=== PATIENT | female | born 1970 | race Caucasian/White ===

== ENCOUNTER → 2019-08-27 | Outpatient (CLI) | payer MEDICAID ==
--- NOTE | 2019-08-27 10:13 | RADIOLOGY REPORT (SQ) ---
EXAM DESCRIPTION: CT ABD/PELVIS WITH IV ORAL COMPLETED DATE/TIME: 08/27/2019 9:45 am REASON FOR STUDY: ABDOMINAL PAIN R10.9 UNSPECIFIED ABDOMINAL PAIN COMPARISON: None. TECHNIQUE: CT scan of the abdomen and pelvis performed using helical scanning technique with dynamic intravenous contrast injection. No oral contrast. Images reviewed with lung, soft tissue, and bone windows. Reconstructed coronal and sagittal MPR images reviewed. Delayed images for evaluation of the urinary system also acquired. All images stored on PACS. All CT scanners at this facility use dose modulation, iterative reconstruction, and/or weight based d osing when appropriate to reduce radiation dose to as low as reasonably achievable (ALARA). [facility]: Dose Right [facility]: CareDose [facility]: Dose Right [facility]: Teradose 4D [facility]: dMetrics CONTRAST TYPE AND DOSE: contrast/concentration: Isovue 350.00 mg/ml; Total Contrast Delivered: 83.0 ml; Total Saline Delivered: 65.0 ml RENAL FUNCTION: None required. The patient is less than 50 years old. RADIATION DOSE: CT Rad equipment meets quality standard of care and radiation dose reduction techniq ues were employed. CTDIvol: 8.3 - 11.5 mGy. DLP: 1547 mGy-cm.. LIMITATIONS: None. FINDINGS: LOWER CHEST: Minimal lingular atelectasis or scarring. LIVER: Normal size. No masses. No dilated ducts. SPLEEN: Normal size. No focal lesions. PANCREAS: No masses. No significant calcifications. No adjacent inflammation or peripancreatic fluid collections. Pancreatic duct not dilated. GALLBLADDER: No identified stones by CT criteria. No inflammatory changes to suggest cholecystitis. ADRENAL GLANDS: No significant masses or asymmetry. RIGHT KIDNEY AND URETER: No solid masses. No significant calcifications. No hydronephrosis or hyd roureter. LEFT KIDNEY AND URETER: 7 mm benign fatty nodule left mid pole kidney likely a small angio myelolipom a. No significant calcifications. No hydronephrosis or hydroureter. AORTA AND VESSELS: No aneurysm. No dissection. Renal arteries, SMA, celiac without stenosis. RETROPERITONEUM: No retroperitoneal adenopathy, hemorrhage or masses. BOWEL AND PERITONEAL CAVITY: No masses or inflammatory changes. No free fluid or peritoneal masses. APPENDIX: Normal. PELVIS: No mass. No free fluid. Normal bladder. Post hysterectomy. Ovaries not visualized. ABDOMINAL WALL: No masses. No hernias. BONES: No significant or acute findings. OTHER: No other significant finding. IMPRESSION: NO SIGNIFICANT OR ACUTE FINDING IN THE ABDOMEN OR PELVIS ON CT SCAN WITH IV CONTRAST. TECHNICAL DOCUMENTATION: JOB ID: [id number] Quality ID # [id number]: Final reports with documentation of one or more dose reduction techniques (e.g., Au tomated exposure control, adjustment of the mA and/or kV according to patient size, use of iterative reconstruction technique) 2010 [employer]- All Rights Reserved Reading location - IP/workstation name: [email or web address]
== END ==
LOC: RAD 09:12
PROVIDERS: ATTEND Surgery
DX: R10.9 Unspecified abdominal pain (principal)
CPT/HCPCS: 74177

== ENCOUNTER → 2020-02-10 | Outpatient (CLI) | payer MEDICAID ==
--- NOTE | 2020-02-10 16:49 | RADIOLOGY REPORT (SQ) ---
EXAM DESCRIPTION: CHEST PA/LATERAL COMPLETED DATE/TIME: 02/10/2020 4:40 pm REASON FOR STUDY: LEFT ELBOW PAIN; DIFFICULTY BREATHING COMPARISON: 11/14/2018 EXAM PARAMETERS: NUMBER OF VIEWS: two views TECHNIQUE: Digital Frontal and Lateral radiographic views of the chest acquired. RADIATION DOSE: NA LIMITATIONS: none FINDINGS: LUNGS AND PLEURA: No opacities, masses or pneumothorax. No pleural effusion. MEDIASTINUM AND HILAR STRUCTURES: No masses or contour abnormalities. HEART AND VASCULAR STRUCTURES: Heart normal size. No evidence for failure. BONES: No acute findings. HARDWARE: None in the chest. OTHER: No other significant finding. IMPRESSION: NO SIGNIFICANT RADIOGRAPHIC FINDING IN THE CHEST. TECHNICAL DOCUMENTATION: JOB ID: [id number] 2010 [employer]- All Rights Reserved Reading location - IP/workstation name: [email or web address]
--- NOTE | 2020-02-10 16:50 | RADIOLOGY REPORT (SQ) ---
EXAM DESCRIPTION: ELBOW LEFT >2 VIEWS COMPLETED DATE/TIME: 02/10/2020 4:40 pm REASON FOR STUDY: LEFT ELBOW PAIN; DIFFICULTY BREATHING R42 DIZZINESS AND GIDDINESS R53.83 OTHER F ATIGUE R63.5 ABNORMAL WEIGHT GAIN COMPARISON: None. NUMBER OF VIEWS: Four views. TECHNIQUE: AP, lateral, and both oblique radiographic images acquired of the left elbow. LIMITATIONS: None. FINDINGS: MINERALIZATION: Normal. BONES: No acute fracture or dislocation. No worrisome bone lesions. Small area of sclerosis in the radial head is consistent with bone island. JOINT: No effusion. SOFT TISSUES: No soft tissue swelling. No foreign body. OTHER: No other significant finding. IMPRESSION: NEGATIVE STUDY OF THE LEFT ELBOW. NO RADIOGRAPHIC EVIDENCE OF ACUTE INJURY. TECHNICAL DOCUMENTATION: JOB ID: [id number] 2010 [employer]- All Rights Reserved Reading location - IP/workstation name: [email or web address]
--- NOTE | 2020-02-10 16:51 | RADIOLOGY REPORT (SQ) ---
EXAM DESCRIPTION: SOFT TISSUE NECK COMPLETED DATE/TIME: 02/10/2020 4:40 pm REASON FOR STUDY: LEFT ELBOW PAIN; DIFFICULTY BREATHING R42 DIZZINESS AND GIDDINESS R53.83 OTHER F ATIGUE R63.5 ABNORMAL WEIGHT GAIN COMPARISON: 06/15/2016 NUMBER OF VIEWS: Two views. TECHNIQUE: AP and lateral radiographic image of the soft tissues of the neck. LIMITATIONS: None. FINDINGS: EPIGLOTTIS: Normal. Contour normal. Aryepiglottic folds normal. PREVERTEBRAL SOFT TISSUES: Normal. No soft tissue swelling. SUBGLOTTIC AREA: Normal. No narrowing. RETROPHARYNGEAL SPACE: Normal. No soft tissue masses. BONES: No significant findings. LUNG APICES: Normal. OTHER: No radiopaque foreign body. No other significant finding. IMPRESSION: NEGATIVE STUDY OF THE SOFT TISSUES OF THE NECK. TECHNICAL DOCUMENTATION: JOB ID: [id number] 2010 [employer]- All Rights Reserved Reading location - IP/workstation name: [email or web address]
[2020-02-10 17:38] LABS: ALBUMIN 4.6 g/dL (3.5-5.0); ALKALINE PHOSPHATASE 56 U/L (38-126); ANION GAP 10 (5-19); ASPARTATE AMINO TRANSFERASE 30 U/L (14-36); BILIRUBIN,TOTAL 0.6 mg/dL (0.2-1.3); BLOOD UREA NITROGEN 13 mg/dL (7-20); CALCIUM 9.4 mg/dL (8.4-10.2); CARBON DIOXIDE 23 mmol/L (22-30); CHLORIDE 104 mmol/L (98-107); GLUCOSE 90 mg/dL (75-110); POTASSIUM 4.3 mmol/L (3.6-5.0); TOTAL PROTEIN 7.1 g/dL (6.3-8.2)
[2020-02-10 17:42] LABS: ABSOLUTE BASOPHILS # (AUTO) 0.1 10^3/uL (0.0-0.2); ABSOLUTE EOSINOPHILS # (AUTO) 0.8 10^3/uL (0.0-0.6); ABSOLUTE LYMPHOCYTES (AUTO) 2.1 10^3/uL (0.5-4.7); ABSOLUTE MONOCYTES (AUTO) 0.5 10^3/uL (0.1-1.4); ABSOLUTE NEUT (AUTO) 3.5 10^3/uL (1.7-8.2); BASOPHILS % (AUTO) 2.1 % (0-2); EOSINOPHILS % (AUTO) 11.9 % (0-6); HEMATOCRIT 39.6 % (36.0-47.0); HEMOGLOBIN 13.8 g/dL (12.0-15.5); LYMPHOCYTES % (AUTO) 29.5 % (13-45); MEAN CORPUSCULAR HEMOGLOBIN 30.4 pg (27.0-33.4); MEAN CORPUSCULAR VOLUME 87 fl (80-97); MONOCYTES % (AUTO) 6.7 % (3-13); PLATELET COUNT 191 10^3/uL (150-450); RED BLOOD COUNT 4.56 10^6/uL (3.72-5.28); RED CELL DISTRIBUTION WIDTH 13.8 % (11.5-14.0); SEGMENTED NEUTROPHILS % (AUTO) 49.8 % (42-78); TOTAL CELLS COUNTED % (AUTO) 100 %
== END ==
LOC: OD 16:12
PROVIDERS: ATTEND Nurse Practitioner Family
DX: R42 Dizziness and giddiness (principal); R53.83 Other fatigue; R63.5 Abnormal weight gain; M25.522 Pain in left elbow; R06.89 Other abnormalities of breathing
CPT/HCPCS: 36415; 70360; 71046; 80053; 84443; 85025

== ENCOUNTER 2020-05-31 21:07 | Emergency (ER) | payer MEDICAID ==
--- NOTE | 2020-05-31 23:30 | RADIOLOGY REPORT (SQ) ---
CLINICAL INDICATION: eval for fx or retained FB. Pain post trauma. TECHNIQUE: 3 view(s) were obtained of the left foot. COMPARISON: None. FINDINGS: No acute displaced fracture is identified of the foot. Alignment appears anatomic. Joint spaces are within normal limits for age. Soft tissue swelling. No retained radiopaque foreign body. IMPRESSION: No evidence of acute displaced fracture of the foot.
--- NOTE | 2020-06-01 00:24 | ER Document Report ---
ED Extremity Problem, Lower - General Chief Complaint: Laceration Stated Complaint: LEFT FOOT PAIN Time Seen by Provider: 05/31/20 22:37 Primary Care Provider: JODIE COLLINS NP [Primary Care Provider] - Follow up as needed Mode of Arrival: Ambulatory Information source: Patient Notes: 49-year-old female presented to ED for complaint of laceration to the left foot caused by oyster shells. She stated that she had cleaned the foot before coming to the emergency room. She states her pain was a 4-5. Told her tetanus was up-to-date as she had had it in 2004 and she did not need it again at this time. She was alert oriented respirations regular nonlabored speaking in full sentences. TRAVEL OUTSIDE OF THE [place] IN LAST 30 DAYS: No - HPI Patient complains to provider of: Injury, Pain Location: Foot - Left foot caused by oyster shells. Occurred: Other - 05/31/2020 Where: Outdoors, Public place Onset/Duration: Sudden Quality of pain: Sharp, Throbbing Severity: Moderate Pain Level: 4 Context: Laceration Recent injury: Yes - Caused by was to chills Associated symptoms: Painful ambulation Exacerbated by: Movement, Walking Relieved by: Elevation - Related Data Allergies/Adverse Reactions: gluten [Gluten] Allergy (Intermediate, Verified 05/31/20 22:37) abd bloating and swelling latex [Latex] Adverse Reaction (Severe, Verified 05/31/20 22:37) skin peels off soy [Soy] Adverse Reaction (Severe, Verified 05/31/20 22:37) irritable stomach Home Medications: ALBUTEROL. ADVAIR Past Medical History - General Information source: Patient - Social History Smoking Status: Never Smoker Frequency of alcohol use: None Drug Abuse: None Lives with: Family Family History: Reviewed & Not Pertinent Patient has homicidal ideation: No - Past Medical History Cardiac Medical History: Reports: None Pulmonary Medical History: Reports: Hx Asthma, Hx Bronchitis, Hx Pneumonia EENT Medical History: Reports: None Neurological Medical History: Reports: Other - Meningioma Endocrine Medical History: Reports: None Renal/ Medical History: Reports: Hx Ovarian Cysts, Other - Fibrocystic uterus, endometriosis, Malignancy Medical History: Reports: Hx Cervical Cancer GI Medical History: Reports: Other - 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 Musculoskeletal Medical History: Reports None Skin Medical History: Reports None Traumatic Medical History: Reports: None Infectious Medical History: Reports: None Past Surgical History: Reports: Hx Breast Surgery, Hx Gynecologic Surgery - Laparoscopic surgeries for endometriosis, Hx Hysterectomy, Hx Tubal Ligation - Immunizations Hx Diphtheria, Pertussis, Tetanus Vaccination: Yes - He stated her tetanus was in 2011 did not want 1 today Review of Systems - Review of Systems Constitutional: No symptoms reported EENT: No symptoms reported Cardiovascular: No symptoms reported Respiratory: No symptoms reported Gastrointestinal: No symptoms reported Genitourinary: No symptoms reported Female Genitourinary: No symptoms reported Musculoskeletal: No symptoms reported Skin: Other - For lacerations from oyster shells. Hematologic/Lymphatic: No symptoms reported Neurological/Psychological: No symptoms reported -: Yes All other systems reviewed and negative Physical Exam - Vital signs Vitals: Temp Pulse Resp BP Pulse Ox 97.9 F 91 18 117/78 96 05/31/20 21:36 05/31/20 21:36 05/31/20 21:36 05/31/20 21:36 05/31/20 21:36 Interpretation: Normal - General General appearance: Appears well, Alert - HEENT Head: Normocephalic, Atraumatic Eyes: Normal Pupils: PERRL - Respiratory Respiratory status: No respiratory distress Chest status: Nontender Breath sounds: Normal Chest palpation: Normal - Cardiovascular Rhythm: Regular Heart sounds: Normal auscultation Murmur: No - Abdominal Inspection: Normal Distension: No distension Bowel sounds: Normal Tenderness: Nontender Organomegaly: No organomegaly - Back Back: Normal, Nontender - Extremities General upper extremity: Normal inspection, Nontender, Normal color, Normal ROM, Normal temperature General lower extremity: Normal inspection, Nontender, Normal color, Normal ROM, Normal temperature, Normal weight bearing. No: Emile's sign - Neurological Neuro grossly intact: Yes Cognition: Normal Orientation: AAOx4 [place] Coma Scale Eye Opening: Spontaneous Isaac Coma Scale Verbal: Oriented [place] Coma Scale Motor: Obeys Commands Isaac Coma Scale Total: 15 Speech: Normal Motor strength normal: LUE, RUE, LLE, RLE Sensory: Normal - Psychological Associated symptoms: Normal affect, Normal mood - Skin Skin Temperature: Warm Skin Moisture: Dry Skin Color: Normal Skin irregularity: Laceration - Regular lacerations due to oyster shells to left foot stepped area very irregular 2 cm Location of irregularity: Other - Left foot Course - Re-evaluation Re-evalutation: 06/01/20 10:15 No foreign body noted in laceration. Patient's foot was soaked in surgical scrub and warm water for 15 minutes then there was irrigated with saline bacitracin Telfa pad applied and then wrapped with [place]. She was given instructions for cleaning foot and soaking wound Epson salt 3 times a day. She was also prescribed doxycycline liquid as she states she cannot swallow pills. She was instructed to use Tylenol for her pain. Patient verbalized understanding and agreement with treatment plan and patient was discharged home. - Vital Signs Vital signs: Temp Pulse Resp BP Pulse Ox 97.7 F 73 15 126/85 H 97 06/01/20 00:51 06/01/20 00:51 06/01/20 00:51 06/01/20 00:51 06/01/20 00:51 - Diagnostic Test Radiology reviewed: Image reviewed, Reports reviewed Procedures - Immobilization Left Foot Time completed: 00:40 Immobilizer type: Crutches Performed by: RN Post-Proc Neuro Vasc Exam: Normal Alignment checked and good: Yes Discharge - Discharge Clinical Impression: Left foot laceration from oyster shells Condition: Stable Disposition: HOME, SELF-CARE Additional Instructions: NON-SUTURED LACERATION: Your laceration did not require suturing. Some lacerations cannot be sutu red because of increased infection risk, while others simply don't need stitches because they are shallow or very short. Your injury should be protected while it heals. Usually complete healing takes 10 to 14 days. Keep the dressing clean and dry, and change it every day. If you notice increasing pain, redness, swelling, drainage, or tender lumps in the armpit or groin above the injury, infection may be present. You should call the doctor at once. Epsom Salt Soaks Soak the wound area in a container of warm epsom salt water. If you can't get the wound area into a bucket or kong, use a folded towel soaked in the epsom salt solution and apply to the area. Use clean hot tap water (about the temperature of a very warm bath), mixing in about one (1) teaspoon for every pint of water. Two gallon --> 16 teaspoons Epsom Salts One gallon --> 8 teaspoons Epsom Salts Two quarts --> 4 teaspoons Epsom Salts One quart --> 2 teaspoons Epsom Salts Soak the wound for about 20 minutes while gently moving it around in the water. Repeat this four (4) times a day. SOAP CLEANSING: Gently wash the wound daily using a mild soap (like Ivory, Phisoderm, Neutrogena). Use warm water, rubbing gently until all debris, ooze, and crusting have been washed from the wound. Allow to dry briefly (about 10 m inutes) after cleaning. Repeat this cleansing at least three times a day for the first two days and then once or twice a day. ANTIBIOTIC OINTMENT PROTECTION: Your wounds are such that dressing them is not practical or optional. After cleansing, you should apply a thin coating of antibiotic ointment (Bacitracin, not Neosporin) to the wounds at least three times daily. This lessens infection risk, and may decrease the amount of scarring. Use a q-tip or dull butter knife, not your finger, to apply this ointment. Any debris or ooze which builds up in the ointment should be gently rubbed off with a sterile gauze pad. Harder crusting may need to be gently scrubbed off with a clean wash cloth with soap and warm water, perhaps applying a warm, wet wash cloth to the wound for ten minutes first. Development of redness, severe itching, or blistering may mean allergy to the ointment. See the doctor. FOLLOW-UP CARE: Please return for follow-up with your primary care doctor in _3____ days for an infection check . If you have been referred to another physician for follow-up care, call that physicians office for an appointment as you were instructed. If you e xperience a significant change in your laceration, or if you are concerned there may be an infection (swelling, redness, drainage, increasing tenderness, red streaks, tender lumps in the armpit or groin above the laceration, or fever), return to the Emergency Department immediately re-evaluation. Prescriptions: Doxycycline Monohydrate [Vibramycin 5 mg/ml Susp] 100 mg PO BID 10 Days #1 bottle Referrals: JODIE COLLINS NP [Primary Care Provider] - Follow up as needed
--- NOTE | 2020-06-01 00:32 | ER Document Report ---
ED Medical Screen (RME) - General Stated Complaint: LEFT FOOT PAIN Time Seen by Provider: 05/31/20 22:37 Primary Care Provider: JODIE COLLINS NP [Primary Care Provider] - Follow up as needed Mode of Arrival: Ambulatory Information source: Patient Notes: 49-year-old female patient presented emergency department concern for laceration to her left foot. Patient reports she stepped on a seashell. She now has diffuse pain and swelling to the entire left foot. I have greeted and performed a rapid initial assessment of this patient. A comprehensive ED assessment and evaluation of the patient, analysis of test results and completion of the medical decision making process will be conducted by additional ED providers. I have specifically instructed the patient or family members with the patient to immediately return to any nursing staff should anything change in the patient's condition or with their chief complaint. TRAVEL OUTSIDE OF THE [place] IN LAST 30 DAYS: No - Related Data Allergies/Adverse Reactions: gluten [Gluten] Allergy (Intermediate, Verified 05/31/20 22:37) abd bloating and swelling latex [Latex] Adverse Reaction (Severe, Verified 05/31/20 22:37) skin peels off soy [Soy] Adverse Reaction (Severe, Verified 05/31/20 22:37) irritable stomach Past Medical History - Past Medical History Cardiac Medical History: Denies: Hx Coronary Artery Disease, Hx Heart Attack, Hx Hypertension Pulmonary Medical History: Reports: Hx Asthma, Hx Bronchitis, Hx Pneumonia Denies: Hx COPD Neurological Medical History: Denies: Hx Cerebrovascular Accident, Hx Seizures Musculoskeltal Medical History: Denies Hx Arthritis Psychiatric Medical History: Denies: Hx Depression Past Surgical History: Reports: Hx Breast Surgery, Hx Hysterectomy, Hx Tubal Ligation - Immunizations Hx Diphtheria, Pertussis, Tetanus Vaccination: No Physical Exam - Vital signs Vitals: Temp Pulse Resp BP Pulse Ox 97.9 F 91 18 117/78 96 05/31/20 21:36 05/31/20 21:36 05/31/20 21:36 05/31/20 21:36 05/31/20 21:36 Course - Vital Signs Vital signs: Temp Pulse Resp BP Pulse Ox 97.7 F 73 15 126/85 H 97 06/01/20 00:51 06/01/20 00:51 06/01/20 00:51 06/01/20 00:51 06/01/20 00:51 Doctor's Discharge - Discharge Clinical Impression: Left foot laceration from oyster shells Condition: Stable Disposition: HOME, SELF-CARE Additional Instructions: NON-SUTURED LACERATION: Your laceration did not require suturing. Some lacerations cannot be sutured because of increased infection risk, while others simply don't need stitches because they are shallow or very short. Your injury should be protected while it heals. Usually complete healing takes 10 to 14 days. Keep the dressing clean and dry, and change it every day. If you notice increasing pain, redness, swelling, drainage, or tender lumps in the armpit or groin above the injury, infection may be present. You should call the doctor at once. Epsom Salt Soaks Soak the wound area in a container of warm epsom salt water. If you can't get the wound area into a bucket or kong, use a folded towel soaked in the epsom salt solution and apply to the area. Use clean hot tap water (about the temperature of a very warm bath), mixing in about one (1) teaspoon for every pint of water. Two gallon --> 16 teaspoons Epsom Salts One gallon --> 8 teaspoons Epsom Salts Two quarts --> 4 teaspoons Epsom Salts One quart --> 2 teaspoons Epsom Salts Soak the wound for about 20 minutes while gently moving it around in the water. Repeat this four (4) times a day. SOAP CLEANSING: Gently wash the wound daily using a mild soap (like Ivory, Phisoderm, Neutrogena). Use warm water, rubbing gently until all debris, ooze, and crusting have been washed from the wound. Allow to dry briefly (about 10 minutes) after cleaning. Repeat this cleansing at least three times a day for the first two days and then once or twice a day. ANTIBIOTIC OINTMENT PROTECTION: Your wounds are such that dressing them is not practical or optional. After cleansing, you should apply a thin coating of antibiotic ointment (Bacitracin, not Neosporin) to the wounds at least three times daily. This lessens infection risk, and may decrease the amount of scarring. Use a q-tip or dull butter knife, not your finger, to apply this ointment. Any debris or ooze which builds up in the ointment should be gently rubbed off with a sterile gauze pad. Harder crusting may need to be gently scrubbed off with a clean wash cloth with soap and warm water, perhaps applying a warm, wet wash cloth to the wound for ten minutes first. Development of redness, severe itching, or blistering may mean allergy to the ointment. See the doctor. FOLLOW-UP CARE: Please return for follow-up with your primary care doctor in _3____ days for an infection check . If you have been referred to another physician for follow-up care, call that physicians office for an appointment as you were instructed. If you experience a significant change in your laceration, or if you are concerned there may be an infection (swelling, redness, drainage, increasing tenderness, red streaks, tender lumps in the armpit or groin above the laceration, or fever), return to the Emergency Department immediately re-evaluation. Prescriptions: Doxycycline Monohydrate [Vibramycin 5 mg/ml Susp] 100 mg PO BID 10 Days #1 bottle Referrals: JODIE COLLINS NP [Primary Care Provider] - Follow up as needed
[2020-06-01 00:52] VITALS: BP 126/85
== END 2020-06-01 01:06 | disposition home or self-care (01) ==
LOC: ER 21:07
DX: S91.312A Laceration without foreign body, left foot, initial encounter (principal); W26.8XXA Contact with other sharp object(s), not elsewhere classified, initial encounter; Z91.040 Latex allergy status; Z91.018 Allergy to other foods
CPT/HCPCS: 99283

== ENCOUNTER 2020-11-27 18:44 | Emergency (ER) | payer MEDICAID ==
[2020-11-27] MEDS ORDERED: METHYLPREDNISOLONE INJ 125 MG/2 ML SDV IV ONE (18:57)
[2020-11-27] MEDS ORDERED: CYCLOBENZAPRINE HCL 10 MG TABLET PO ONE (18:58)
[2020-11-27] MEDS ORDERED: IPRATROPIUM/ALBUTEROL 0.5-2.5 MG/3 ML AMPUL NEB ONE (18:58)
--- NOTE | 2020-11-27 18:59 | ER Document Report ---
ED Medical Screen (RME) - General Chief Complaint: Shoulder Pain Stated Complaint: RIGHT SHOULDER/ARM PAIN Time Seen by Provider: 11/27/20 18:48 Primary Care Provider: JODIE COLLINS NP [Primary Care Provider] - Follow up as needed Mode of Arrival: Ambulatory Information source: Patient Notes: HPI; 50-year-old female past medical history significant for reactive airway disease presents to the emergency room complaining of right shoulder pain that started last night while she was sleeping. Pain is gotten progressively worse throughout the day. She denies any trauma or injury. Also states it hurts to take a deep breath but she denies chest pain or shortness of breath. Has been using her inhalers without relief. States she is out of medication for her nebu lizer. She denies any fevers. She denies any COVID-19 exposure. States she took 600 mg of ibuprofen around 3 PM without relief. PE: Alert and oriented x3. Lungs with wheezing and rhonchi no rales. Heart: Regular rate rhythm without murmurs, rubs, gallops. Tenderness over the right trapezius muscle as well as the right posterior and anterior shoulder painful range of motion to right shoulder. Bpm Analyst strength equal and adequate bilaterally. Positive right radial pulse. I have greeted and performed a rapid initial assessment of this patient. A comprehensive ED assessment and evaluation of the patient, analysis of test results and completion of the medical decision making process will be conducted by additional ED providers. I have specifically instructed the patient or family members with the patient to immediately return to any nursing staff should anything change in the patient's condition or with their chief complaint. TRAVEL OUTSIDE OF THE [place] IN LAST 30 DAYS: No - Related Data Allergies/Adverse Reactions: gluten [Gluten] Allergy (Intermediate, Verified 05/31/20 22:37) abd bloating and swelling latex [Latex] Adverse Reaction (Severe, Verified 05/31/20 22:37) skin peels off soy [Soy] Adverse Reaction (Severe, Verified 05/31/20 22:37) irritable stomach Past Medical History - Past Medical History Cardiac Medical History: Denies: Hx Coronary Artery Disease, Hx Heart Attack, Hx Hypertension Pulmonary Medical History: Reports: Hx Asthma, Hx Bronchitis, Hx Pneumonia Denies: Hx COPD Neurological Medical History: Denies: Hx Cerebrovascular Accident, Hx Seizures Renal/ Medical History: Reports: Hx Ovarian Cysts Malignancy Medical History: Reports: Hx Cervical Cancer Musculoskeltal Medical History: Denies Hx Arthritis Psychiatric Medical History: Denies: Hx Depression Past Surgical History: Reports: Hx Breast Surgery, Hx Gynecologic Surgery - Lap aroscopic surgeries for endometriosis, Hx Hysterectomy, Hx Tubal Ligation - Immunizations Hx Diphtheria, Pertussis, Tetanus Vaccination: Yes - He stated her tetanus was in 2011 did not want 1 today Physical Exam - Vital signs Vitals: Temp Pulse Resp BP Pulse Ox 97.6 F 77 20 132/80 H 96 11/27/20 18:48 11/27/20 18:48 11/27/20 18:48 11/27/20 18:48 11/27/20 18:48 Course - Vital Signs Vital signs: Temp Pulse Resp BP Pulse Ox 97.6 F 77 20 132/80 H 96 11/27/20 18:48 11/27/20 18:48 11/27/20 18:48 11/27/20 18:48 11/27/20 18:48 Doctor's Discharge - Discharge Referrals: JODIE COLLINS NP [Primary Care Provider] - Follow up as needed
--- NOTE | 2020-11-27 19:34 | RADIOLOGY REPORT (SQ) ---
EXAM DESCRIPTION: SHOULDER RIGHT 2 OR MORE VIEWS IMAGES COMPLETED DATE/TIME: 11/27/2020 7:17 pm REASON FOR STUDY: pain COMPARISON: None. NUMBER OF VIEWS: Three views. TECHNIQUE: Internal rotation, external rotation, and Y view images acquired of the right shoulder. LIMITATIONS: None. FINDINGS: MINERALIZATION: Normal. BONES: No acute fracture. No worrisome bone lesions. JOINTS: No dislocation. VISUALIZED LUNGS AND RIBS: No pneumothorax. No rib fracture. SOFT TISSUES: No radiopaque foreign body. Incidental note is made of calcific tendinopathy of the ro tator cuff. OTHER: No other significant finding. IMPRESSION: No evidence of acute osseous injury. Incidental note is made of rotator cuff calcific t endinopathy. TECHNICAL DOCUMENTATION: JOB ID: [id number] 2010 [employer]- All Rights Reserved Reading location - IP/workstation name: [email or web address]
--- NOTE | 2020-11-27 19:35 | RADIOLOGY REPORT (SQ) ---
EXAM DESCRIPTION: CHEST 2 VIEWS IMAGES COMPLETED DATE/TIME: 11/27/2020 7:17 pm REASON FOR STUDY: dyspnea COMPARISON: 02/10/2020 EXAM PARAMETERS: NUMBER OF VIEWS: two views TECHNIQUE: Digital Frontal and Lateral radiographic views of the chest acquired. RADIATION DOSE: NA LIMITATIONS: none FINDINGS: LUNGS AND PLEURA: No opacities, masses or pneumothorax. No pleural effusion. MEDIASTINUM AND HILAR STRUCTURES: No masses or contour abnormalities. HEART AND VASCULAR STRUCTURES: Heart normal size. No evidence for failure. BONES: No acute findings. HARDWARE: None in the chest. OTHER: No other significant finding. IMPRESSION: No evidence of acute cardiopulmonary abnormality. TECHNICAL DOCUMENTATION: JOB ID: [id number] 2010 [employer]- All Rights Reserved Reading location - IP/workstation name: [email or web address]
[2020-11-27 20:04] LABS: ABSOLUTE BASOPHILS # (AUTO) 0.1 10^3/uL (0.0-0.2); ABSOLUTE EOSINOPHILS # (AUTO) 0.8 10^3/uL (0.0-0.6); ABSOLUTE LYMPHOCYTES (AUTO) 2.8 10^3/uL (0.5-4.7); ABSOLUTE MONOCYTES (AUTO) 0.7 10^3/uL (0.1-1.4); ABSOLUTE NEUT (AUTO) 7.6 10^3/uL (1.7-8.2); BASOPHILS % (AUTO) 0.8 % (0-2); EOSINOPHILS % (AUTO) 6.9 % (0-6); HEMATOCRIT 42.1 % (36.0-47.0); HEMOGLOBIN 14.3 g/dL (12.0-15.5); LYMPHOCYTES % (AUTO) 23.1 % (13-45); MEAN CORPUSCULAR HEMOGLOBIN 29.5 pg (27.0-33.4); MEAN CORPUSCULAR HGB CONC 33.8 g/dL (32.0-36.0); MEAN CORPUSCULAR VOLUME 87 fl (80-97); MONOCYTES % (AUTO) 5.7 % (3-13); PLATELET COUNT 271 10^3/uL (150-450); RED BLOOD COUNT 4.83 10^6/uL (3.72-5.28); RED CELL DISTRIBUTION WIDTH 13.7 % (11.5-14.0); SEGMENTED NEUTROPHILS % (AUTO) 63.5 % (42-78); TOTAL CELLS COUNTED % (AUTO) 100 %
[2020-11-27 20:18] LABS: ALBUMIN 4.9 g/dL (3.5-5.0); ALKALINE PHOSPHATASE 79 U/L (38-126); ANION GAP 8 (5-19); ASPARTATE AMINO TRANSFERASE 44 U/L (14-36); BILIRUBIN,DIRECT 0.1 mg/dL (0.0-0.4); BILIRUBIN,TOTAL 0.4 mg/dL (0.2-1.3); BLOOD UREA NITROGEN 25 mg/dL (7-20); CALCIUM 10.1 mg/dL (8.4-10.2); CARBON DIOXIDE 28 mmol/L (22-30); CHLORIDE 100 mmol/L (98-107); GLUCOSE 94 mg/dL (75-110); TOTAL PROTEIN 7.8 g/dL (6.3-8.2)
[2020-11-27] MEDS ORDERED: METHYLPREDNISOLONE INJ 125 MG/2 ML SDV ONE (22:06)
[2020-11-28] MEDS ORDERED: HYDROCODONE/ACETAMINOPHEN 5-325 MG TABLET PO ONE (00:06)
[2020-11-28] MEDS ORDERED: HYDROCODONE/ACETAMINOPHEN 5-325 MG (6 TAB/ER DISP) PO PRN (00:06)
[2020-11-28] MEDS ORDERED: PREDNISONE 20 MG TABLET PO ONE (00:07)
--- NOTE | 2020-11-28 00:14 | ER Document Report ---
ED General - General Chief Complaint: Shoulder Pain Stated Complaint: RIGHT SHOULDER/ARM PAIN Time Seen by Provider: 11/27/20 18:48 Primary Care Provider: JODIE COLLINS NP [Primary Care Provider] - Follow up as needed Mode of Arrival: Ambulatory TRAVEL OUTSIDE OF THE [place] IN LAST 30 DAYS: No - HPI Context: Chief Complaint: [Right shoulder pain, pain in hands, out of medications] [This is a 50-year-old female who presents to the emergency department with multiple complaints. Patient's main complaint is pain that she is experiencing in her right shoulder that started about 3 days ago. Patient denies any heavy lifting or any other strenuous activity. Patient states that she had a history of juvenile rheumatoid arthritis but "prayed about it" and has not had problems with it since. However, patient states that starting around 3 months ago she noticed pain in both of her hands that was exacerbated with trying to make a fist in both hands. Patient states she does not do work that involves a lot of repetitive motion. Patient has a history of reactive airway disease and is requesting a refill on her albuterol nebulizer vials and Pulmicort nebulizer vials. ] History obtained from [patient] Symptoms began:[Right shoulder pain x3 days, and pain x2 to 3 months] Onset: [Sudden] Timing: [Sudden] Quality: [Sharp] Intensity: [5 out of 5] Location: [Right shoulder and hands] Radiation: [None] [The pain does not migrate to a new location.] Aggravating factors: Movement Relieving factors: [none] [Denies] SOB [Denies] nausea [Denies] vomiting [Denies] sweats [Denies] fever [Denies] cough [Denies] calf or leg swelling or pain - Related Data Allergies/Adverse Reactions: gluten [Gluten] Allergy (Intermediate, Verified 11/27/20 21:59) abd bloating and swelling latex [Latex] Adverse Reaction (Severe, Verified 11/27/20 21:59) skin peels off soy [Soy] Adverse Reaction (Severe, Verified 11/27/20 21:59) irritable stomach Past Medical History - General Information source: Patient - Social History Smoking Status: Unknown if Ever Smoked Family History: Reviewed & Not Pertinent Patient has homicidal ideation: No - Past Medical History Cardiac Medical History: Denies: Hx Coronary Artery Disease, Hx Heart Attack, Hx Hypertension Pulmonary Medical History: Reports: Hx Asthma, Hx Bronchitis, Hx Pneumonia Denies: Hx COPD Neurological Medical History: Denies: Hx Cerebrovascular Accident, Hx Seizures Renal/ Medical History: Reports: Hx Ovarian Cysts Malignancy Medical History: Reports: Hx Cervical Cancer Musculoskeletal Medical History: Denies Hx Arthritis Psychiatric Medical History: Denies: Hx Depression Past Surgical History: Reports: Hx Breast Surgery, Hx Gynecologic Surgery - Laparoscopic surgeries for endometriosis, Hx Hysterectomy, Hx Tubal Ligation - Immunizations Hx Diphtheria, Pertussis, Tetanus Vaccination: Yes - He stated her tetanus was in 2011 did not want 1 today Review of Systems - Review of Systems Notes: Review of systems as below unless otherwise stated in HPI. CONSTITUTIONAL [No] fever, [No] chills. EYES [No] eye pain. ENT [No] URI symptoms, [No] sore throat, [No] ear pain. CARDIOVASCULAR [No] chest pain, [No] palpitations, [No] edema. RESPIRATORY [No] Cough, [No] SOB, [No] wheezing. GASTROINTESTINAL [No] abdominal pain, [No] nausea, [No] Diarrhea, [No] Vomiting, [No] constipation, [No] melena, [No] rectal bleeding. GENITOURINARY [No] dysuria, [No] urinary frequency, [No] hematuria, [No] urinary urgency, [No] vaginal discharge, [No] vaginal bleeding. MUSCULOSKELETAL Positive right shoulder and bilateral hand pain SKIN [No] Rash. NEUROLOGIC [No] Headache, [No] recent seizures, [No] paralysis,[No] parathesias. ENDOCRINE [No] polyuria. HEMO/LYMPATIC [No] easy brusing PSYCHIATRIC [No] depression. Physical Exam - Vital signs Vitals: Temp Pulse Resp BP Pulse Ox 97.6 F 77 20 132/80 H 96 11/27/20 18:48 11/27/20 18:48 11/27/20 18:48 11/27/20 18:48 11/27/20 18:48 - Notes Notes: CONSTITUTIONAL [Vital signs reviewed, Patient appears comfortable, Alert and oriented X 3, Normal stature.] HEAD [Atraumatic, Normocephalic.] EYES [Eyes are normal to inspection, No discharge from eyes, Extraocular muscles intact, Sclera are normal, Conjunctiva are normal.] ENT [External ears normal to inspection, Nose examination normal, Mouth normal to inspection.] NECK [Normal ROM, No jugular venous distention, No meningeal signs, ] RESPIRATORY CHEST [Chest is nontender, Breath sounds normal, No respiratory distress.] CARDIOVASCULAR [RRR, No murmurs, Normal S1 S2, No rub, No gallop.] ABDOMEN [Abdomen is nontender, No pulsatile masses, No other masses, Bowel sounds normal, No distension, No peritoneal signs, No hernias.] BACK [There is no CVA Tenderness, There is no tenderness to palpation, Normal inspec tion.] UPPER EXTREMITY Exam is significant for pain when the patient makes fists with both her hands bilaterally. There do not appear to be any swollen interval phalangeal joints. No deformities or crepitus are noted. Palpation of the patient's right shoulder anteriorly along the course of the biceps tendon exacerbates the pain. Apprehension test is positive. LOWER EXTREMITY [Inspection normal, No cyanosis, No clubbing, No edema, No calf tenderness, NEURO [No focal motor deficits, No focal sensory deficits, Speech normal.] SKIN [Skin is warm, Skin is dry, Skin is normal color.] PSYCHIATRIC [Normal affect. ] Course - Re-evaluation Re-evalutation: 11/28/20 00:16 Results of ED MSE discussed with patient. All questions were answered. Emergency signs and symptoms, reasons to return to the emergency department discussed with patient. Patient was encouraged to follow-up with her primary care provider for further testing since she is having persistent hand pain. If the patient is having a recurrence of her rheumatoid arthritis her primary care provider could order tests such as rheumatoid factor and other labs that are not easily obtainable in the emergency department. 11/28/20 00:21 - Vital Signs Vital signs: Temp Pulse Resp BP Pulse Ox 97.6 F 77 20 132/80 H 96 11/27/20 18:48 11/27/20 18:48 11/27/20 18:48 11/27/20 18:48 11/27/20 18:48 - Laboratory Results Result Diagrams: 11/27/20 19:45 11/27/20 19:45 Laboratory Results Interpreted: 11/27/20 11/27/20 19:45 19:45 WBC 12.0 H Eos % (Auto) 6.9 H Absolute Eos (auto) 0.8 H Sodium 136.4 L BUN 25 H AST 44 H ALT 47 H Critical Laboratory Results Reviewed: No Critical Results Attending or Supervising Physician who Reviewed Labs: BART CHUNG IV - Radiology Results Critical Radiology Results Reviewed: No Critical Results Attending or Supervising Physician who Reviewed Radiology: BART CHUNG IV Procedures - Immobilization Right Shoulder Time completed: 00:45 Pre-Proc Neuro Vasc Exam: Normal Immobilizer type: Sling Performed by: PCT Post-Proc Neuro Vasc Exam: Normal Alignment checked and good: Yes Discharge - Discharge Clinical Impression: Bicipital tendinitis, right shoulder, Bilateral hand pain, Encounter for medication refill Condition: Stable Disposition: HOME, SELF-CARE Additional Instructions: SepsisReturn to the Emergency Department without delay if any worse. The symptoms in your right shoulder and findings are consistent with tendinitis. Use the shoulder sling on and off throughout the day to help rest the tendon. You are being put on steroids to help with the inflammation. You can look on google or YouTube for instructional videos about home physical therapy to help rehabilitate your shoulder. You are being given a referral to a orthopedist in case your symptoms worsen. HOME CARE INSTRUCTIONS & INFORMATION: Thank you for choosing us for your medical needs. We hope you're satisfied with the care you received. After you leave, you must properly care for your problem and, at the same time, observe its progress. Any condition can change. Some illnesses can change rapidly over hours or days. If your condition worsens, return to the Emergency Department or see your physician promptly. ABOUT YOUR X-RAYS AND EKG'S: If you had an EKG or X-rays taken, they have been read by the Emergency Physician. The X-rays and EKG's will also be read by a Radiologist or Medical Practice Administrator within 24 hours. If discrepancies are noted, you will be notified by telephone. Please be certain the ED has a correct telephone number & address where you can be reached. Also, realize that some fractures or abnormalities do not show up on initial X-rays. If your symptoms continue, see your physician. ABOUT YOUR LABORATORY TEST: If you had laboratory tests, the results have been reviewed by the Emergency Physician. Some test results (for example cultures) may not be available for several days. You will be contacted if any test result shows you need additional treatment. Please be certain the ED has a correct telephone number and address where you can be reached. ABOUT YOUR MEDICATIONS: You will receive instructions on how to take your medicine on the prescription label you receive. Additional information may be provided by the Pharmacy. If you have questions afterwards, call the ED for clarification or further instructions. Some prescribed medications may cause drowsiness. Do not perform tasks such as driving a car or operating machinery without consulting your Pharmacist. If you feel you need a refill of pain medication, your condition will need re-evaluation. Please do not call for a refill of any medication. ABOUT YOUR SIGNATURE: Signature of this document acknowledges to followin. Understanding that you received emergency treatment and that you may be released before al medical problems are known or treated. Please be certain the ED has a correct phone number & address where you can be reached. 2. Acknowledgement that you will arrange for follow-up care as recommended. 3. Authorization for the Emergency Physician to provide information to your follow-up Physician in order to maximize your care. AT ANY TIME, IF YOUR SYMPTOMS CHANGE SIGNIFICANTLY OR WORSEN OR YOU DEVELOP NEW SYMPTOMS, RETURN TO THE EMERGENCY DEPARTMENT IMMEDIATELY FOR RE-EVALUATION. OUR GOAL IS TO PROVIDE EXCELLENT MEDICAL CARE! WE HOPE THAT WE HAVE MET YOUR EXPECTATIONS DURING YOUR EMERGENCY DEPARTMENT VISIT AND THAT YOU FEEL YOU HAVE RECEIVED EXCELLENT CARE! Tendonitis The pain you are having is due to tendonitis -- an inflammation around a muscle tendon. It's usually caused by overuse or repeated minor injuries (strains) of the tendon. Tendonitis can take two to four weeks to heal. In fact, you may actually worsen for a few days despite treatment. Tendonitis is usually treated with rest, local heat, and antiinflammatory medication. Sometimes cold packs are r ecommended if the tendonitis has just started. If the pain is severe or prolonged, cortisone injections may be required. Call the doctor if pain or swelling become severe, if new discoloration or redness appears, or if numbness is noted. Prescriptions: Albuterol Sulfate [Proventil 0.5% Neb 2.5 mg/0.5 ml Vial.neb] 2.5 mg NEB Q4HP PRN 30 Days #100 vial.neb PRN Reason: wheezing Budesonide [Pulmicort Neb 0.5 mg/2 ml Ampul] 0.5 mg NEB Q4HP PRN 14 Days #30 ampul.neb PRN Reason: wheezing Hydrocodone/Acetaminophen [Doerun 5-325 mg Tablet] 1 tab PO Q6HP PRN #15 tablet PRN Reason: pain Prednisone [Deltasone 20 mg Tablet] 3 tab PO DAILY 4 Days #12 tablet Referrals: JODIE COLLINS, HAND WRAPPER OPERATOR [Primary Care Provider] - Follow up as needed NNEKA MORENO JR, DO [ACTIVE PROVISIONAL STAFF] - Follow up as needed (Call to schedule follow-up appointment with Dr. Moreno if your symptoms fail to improve over the next 5 to 7 days)
[2020-11-28 01:20] VITALS: BP 118/79
== END 2020-11-28 01:11 | disposition home or self-care (01) ==
LOC: ER 18:44
DX: M75.21 Bicipital tendinitis, right shoulder (principal); M79.641 Pain in right hand; M79.642 Pain in left hand; J45.909 Unspecified asthma, uncomplicated; Z76.0 Encounter for issue of repeat prescription; Z85.41 Personal history of malignant neoplasm of cervix uteri; Z91.018 Allergy to other foods
CPT/HCPCS: 94640; 99284; 36415; 85025; 80053; 71046; 73030; J3490; J7512